=== PATIENT | female | born 1985 | race Caucasian/White ===

== ENCOUNTER → 2016-12-15 | Emergency (ER) | payer OTHER ==
[2016-12-15 17:01] VITALS: TEMP 98.1; BMI 28.8
--- NOTE | 2016-12-15 17:32 | PDOC ---
History of Present Illness - General History Source: Patient Exam Limitations: No Limitations - History of Present Illness Initial Comments: 12/15/16 17:49 The patient is a 31 year old female with a PMHx of asthma who presents to the ED with RLQ pain since Thursday. She now complains of suprapubic pain now. She reports that her pain was 10/10, but she currently rates it a 7/10. She also reports bloating and that she has needed to use her albuterol treatment 3x a day. She had an US a month ago that showed left sided kidney stones, but they were too small and she was told they would pass on their own. She has been taking disolvatol for her kidney stones, which she bought online. She denies dysuria, hematuria. She recently had an STD screening which came back negative. FHx: cancer <Anabel Moise - Last Filed: 12/15/16 17:48> <Jaskaran Shoemaker - Last Filed: 12/18/16 10:24> - General Chief Complaint: Pain, Acute Stated Complaint: KIDNEY STONES Time Seen by Provider: 12/15/16 17:32 Past History <Anabel Moise - Last Filed: 12/15/16 17:48> - Past Medical History Asthma: Yes Kidney Stones: Yes - Surgical History Cholecystectomy: Yes - Immunization History Immunization Up to Date: Yes - Psycho/Social/Smoking Cessation Hx Anxiety: No Suicidal Ideation: No Smoking History: Never smoked Have you smoked in the past 12 months: No Hx Alcohol Use: No Drug/Substance Use Hx: No Substance Use Type: None <Jaskaran Shoemaker - Last Filed: 12/18/16 10:24> - Past Medical History Allergies/Adverse Reactions: Allergies Allergy/AdvReac Type Severity Reaction Status Date / Time Penicillins Allergy Itching Verified 12/15/16 16:57 Home Medications: Ambulatory Orders Albuterol Sulfate Inhaler - [Ventolin Hfa Inhaler -] 2 inh PO Q4H 12/15/16 Review of Systems - Review of Systems Able to Perform ROS?: Yes Comments:: 12/15/16 17:49 GENERAL/CONSTITUTIONAL: No fever or chills. No weakness. HEAD, EYES, EARS, NOSE AND THROAT: No change in vision. No ear pain or discharge. No sore throat. CARDIOVASCULAR: No chest pain or shortness of breath. RESPIRATORY: No cough, wheezing, or hemoptysis. GASTROINTESTINAL: No nausea, vomiting, diarrhea or constipation. GENITOURINARY: No dysuria, frequency, or change in urination. MUSCULOSKELETAL: No joint or muscle swelling or pain. No neck or back pain. SKIN: No rash NEUROLOGIC: No headache, vertigo, loss of consciousness, or change in strength/ sensation. ENDOCRINE: No increased thirst. No abnormal weight change. HEMATOLOGIC/LYMPHATIC: No anemia, easy bleeding, or history of blood clots. ALLERGIC/IMMUNOLOGIC: No hives or skin allergy. <Cherie Moiseoblionel Valencia - Last Filed: 12/15/16 17:48> *Physical Exam - Vital Signs Last Vital Signs Temp Pulse Resp BP Pulse Ox 98.1 F 84 16 155/97 100 12/15/16 16:58 12/15/16 16:58 12/15/16 16:58 12/15/16 16:58 12/15/16 16:58 - Physical Exam Comments: 12/15/16 17:49 GENERAL: Awake, alert, and fully oriented, in no acute distress HEAD: No signs of trauma EYES: PERRLA, EOMI, sclera anicteric, conjunctiva clear ENT: Auricles normal inspection, hearing grossly normal, nares patent, oropharynx clear without exudates. Moist mucosa NECK: Normal ROM, supple, no lymphadenopathy, JVD, or masses LUNGS: Breath sounds equal, clear to auscultation bilaterally. No wheezes, and no crackles HEART: Regular rate and rhythm, normal S1 and S2, no murmurs, rubs or gallops ABDOMEN: Tenderness to palpation in suprapubic area. Soft, normoactive bowel sounds. No guarding, no rebound. No masses EXTREMITIES: Normal range of motion, no edema. No clubbing or cyanosis. No cords, erythema, or tenderness NEUROLOGICAL: Cranial nerves II through XII grossly intact. Normal speech, normal gait SKIN: Warm, Dry, normal turgor, no rashes or lesions noted. <Cherie Moiseoblionel Valencia - Last Filed: 12/15/16 17:48> - Vital Signs Last Vital Signs Temp Pulse Resp BP Pulse Ox 98.1 F 84 16 155/97 100 12/15/16 16:58 12/15/16 16:58 12/15/16 16:58 12/15/16 16:58 12/15/16 16:58 <Jaskaran Shoemaker - Last Filed: 12/18/16 10:24> ED Treatment Course - LABORATORY CBC & Chemistry Diagram: 12/15/16 18:00 12/15/16 18:00 <Jaskaran Shoemaker - Last Filed: 12/18/16 10:24> *DC/Admit/Observation/Transfer - Attestations Scribe Attestion: 12/15/16 17:49 Documentation prepared by Anabel Moise, acting as medical laboratory technologist for Jaskaran Shoemaker DO. <Anabel Moise - Last Filed: 12/15/16 17:48> - Attestations Physician Attestion: 12/15/16 17:32 I, Dr. Jaskaran Shoemaker, attest that this document has been prepared under my direction and personally reviewed by me in its entirety. I further attest, that it accurately reflects all work, treatment, procedures and medical decision -making performed by me. <Jaskaran Shoemaker - Last Filed: 12/18/16 10:24> Diagnosis at time of Disposition: Abdominal pain Qualifiers: Abdominal location: right lower quadrant Qualified Code(s): R10.31 - Right lower quadrant pain - Discharge Dispostion Disposition: HOME - Referrals Referrals: STAFF,NOT ON [Primary Care Provider] - - Patient Instructions Printed Discharge Instructions: DI for Abdominal Pain-Adult Additional Instructions: We have not found the cause for your abdominal pain today. All of the tests that we did in the ED were normal. You should return to the ED immediately for severe pain, pain with fever, new or worsening symptoms. Follow up with your doctor within one week.
[2016-12-15 18:02] LABS: URINE APPEARANCE CLEAR; URINE BILIRUBIN NEGATIVE (NEGATIVE); URINE BLOOD NEGATIVE (NEGATIVE); URINE COLOR STRAW; URINE GLUCOSE (UA) NEGATIVE (NEGATIVE); URINE KETONE NEGATIVE (NEGATIVE); URINE LEUK ESTERASE NEGATIVE (NEGATIVE); URINE NITRITE NEGATIVE (NEGATIVE); URINE PROTEIN NEGATIVE (NEGATIVE); URINE UROBILINOGEN NEGATIVE mg/dL (0.2-1.0)
[2016-12-15 18:38] LABS: BASOPHIL 0.7 % (0-2.0); EOSINOPHIL 6.3 % (0-4.5); INR 1.05 (0.82-1.09); MCH 28.4 pg (25.7-33.7); MCHC 33.5 g/dl (32.0-36.0); MEAN PLT VOLUME 9.5 fl (7.5-11.1); NEUTROPHILS 52.2 % (42.8-82.8); PLATELET COUNT 253 K/MM3 (134-434); PROTHROMBIN TIME (PATIENT) 11.6 SEC (9.98-11.88); RDW 13.5 % (11.6-15.6); WHITE BLOOD COUNT 7.2 K/mm3 (4.0-10.0)
[2016-12-15 19:05] LABS: ALBUMIN 3.6 g/dl (3.4-5.0); ALK PHOS 63 U/L (45-117); ANION GAP 10 (8-16); BILIRUBIN,TOTAL 0.2 mg/dL (0.2-1.0); CALCIUM 8.9 mg/dL (8.5-10.1); CO2 23 mmol/L (21-32); CREATININE 0.6 mg/dL (0.55-1.02); GLUCOSE,RANDOM 91 mg/dL (74-106); SGPT/ALT 34 U/L (12-78); TOT PROT 7.8 g/dl (6.4-8.2)
[2016-12-15 19:10] LABS: SGOT/AST 28 U/L (15-37)
--- NOTE | 2016-12-15 22:46 | PDOC ---
*Physical Exam - Vital Signs Last Vital Signs Temp Pulse Resp BP Pulse Ox 98.1 F 84 16 155/97 100 12/15/16 16:58 12/15/16 16:58 12/15/16 16:58 12/15/16 16:58 12/15/16 16:58 ED Treatment Course - LABORATORY CBC & Chemistry Diagram: 12/15/16 18:00 12/15/16 18:00 - ADDITIONAL ORDERS Additional order review: Laboratory Results 12/15/16 12/15/16 12/15/16 18:00 18:00 17:52 INR 1.05 Sodium 137 Potassium 4.1 Chloride 104 Carbon Dioxide 23 Anion Gap 10 BUN 15 Creatinine 0.6 Creat Clearance w eGFR > 60 Random Glucose 91 Calcium 8.9 Total Bilirubin 0.2 D AST 28 D ALT 34 Alkaline Phosphatase 63 Total Protein 7.8 Albumin 3.6 Lipase 182 Serum , Qual Urine Color Urine Appearance Urine pH Ur Specific [place] Urine Protein Urine Glucose (UA) Urine Ketones Urine Blood Urine Nitrite Urine Bilirubin Urine Urobilinogen Ur Leukocyte Esterase Urine HCG, Qual Negative 12/15/16 17:51 INR Sodium Potassium Chloride Carbon Dioxide Anion Gap BUN Creatinine Creat Clearance w eGFR Random Glucose Calcium Total Bilirubin AST ALT Alkaline Phosphatase Total Protein Albumin Lipase Serum , Qual Cancelled Urine Color Straw Urine Appearance Clear Urine pH 6.0 Ur Specific [place] 1.020 Urine Protein Negative Urine Glucose (UA) Negative Urine Ketones Negative Urine Blood Negative Urine Nitrite Negative Urine Bilirubin Negative Urine Urobilinogen Negative Ur Leukocyte Esterase Negative Urine HCG, Qual 12/15/16 18:00 RBC 4.54 MCV 85.0 MCHC 33.5 RDW 13.5 MPV 9.5 Neutrophils % 52.2 Lymphocytes % 33.0 D Monocytes % 7.8 Eosinophils % 6.3 H D Basophils % 0.7 - RADIOLOGY Radiology Studies Ordered: Category Date Time Status TRANSVAGINAL ULTRASOUND US [US] Stat Ultrasound 12/15/16 20:32 Completed Medical Decision Making - Medical Decision Making 12/15/16 22:45 Pt signed out to me as pending CT and pelvic US if CT was negative. CT and pelvic US are normal. Patient feels improved and is asking to go home. Will discharge patient home. Patient understands that we have not found a cause for her pain and will return to the ED for worsening pain. *DC/Admit/Observation/Transfer Diagnosis at time of Disposition: Abdominal pain Qualifiers: Abdominal location: right lower quadrant Qualified Code(s): R10.31 - Right lower quadrant pain - Discharge Dispostion Disposition: HOME Condition at time of disposition: Good Admit: No - Referrals Referrals: STAFF,NOT ON [Primary Care Provider] - - Patient Instructions Printed Discharge Instructions: DI for Abdominal Pain-Adult Additional Instructions: We have not found the cause for your abdominal pain today. All of the tests that we did in the ED were normal. You should return to the ED immediately for severe pain, pain with fever, new or worsening symptoms. Follow up with your doctor within one week. - Post Discharge Activity
[2016-12-15 23:13] VITALS: BP 154/84; PULSE 83
== END | disposition home or self-care (01) ==
LOC: JER 16:50
DX: R10.31 Right lower quadrant pain (principal)
CPT/HCPCS: 36415; 74176-TC; 76830-TC; 80053; 81003; 83690; 84703; 85025; 85610; 87086; 99282-25

== ENCOUNTER 2019-03-09 17:18 | Emergency (ER) | payer OTHER ==
--- NOTE | 2019-03-09 17:27 | PDOC ---
History of Present Illness <Jayden Burdick - Last Filed: 03/09/19 19:12> <Zohra Howard - Last Filed: 03/10/19 13:47> - General Chief Complaint: Respiratory Stated Complaint: RESPIRATORY COMPLAINTS ABDOMINAL PAIN Time Seen by Provider: 03/09/19 17:26 Past History <Jayden Burdick - Last Filed: 03/09/19 19:12> - Past Medical History Asthma: Yes Kidney Stones: Yes - Surgical History Cholecystectomy: Yes - Immunization History Immunization Up to Date: Yes - Psycho Social/Smoking Cessation Hx Smoking History: Never smoked Have you smoked in the past 12 months: No Hx Alcohol Use: No Drug/Substance Use Hx: No Substance Use Type: None <Zohra Howard - Last Filed: 03/10/19 13:47> - Past Medical History Allergies/Adverse Reactions: Allergies Allergy/AdvReac Type Severity Reaction Status Date / Time Penicillins Allergy Itching Verified 03/09/19 17:21 Home Medications: Ambulatory Orders Albuterol Sulfate Inhaler - [Ventolin Hfa Inhaler -] 2 inh PO Q4H 12/15/16 Fluticasone/Salmeterol [Advair Hfa 45-21 Mcg Inhaler] 1 inh PO BID #1 inhaler Montelukast Na [Singulair -] 10 mg PO HS #14 tablet 03/09/19 *Physical Exam - Vital Signs Last Vital Signs Temp Pulse Resp BP Pulse Ox 98.5 F 78 18 143/73 96 03/09/19 17:21 03/09/19 17:21 03/09/19 17:21 03/09/19 17:21 03/09/19 17:21 <Jayden Burdick - Last Filed: 03/09/19 19:12> ED Treatment Course - ADDITIONAL ORDERS Additional order review: Laboratory Results 03/09/19 03/09/19 18:20 18:20 Urine Color Yellow Urine Appearance Clear Urine pH 7.0 Urine Protein Negative Urine Glucose (UA) Negative Urine Ketones Trace Urine Blood Negative Urine Nitrite Negative Urine Bilirubin Negative Urine Urobilinogen 0.2 Ur Leukocyte Esterase Negative Urine HCG, Qual Negative - Medications Given in the ED: ED Medications Discontinued Medications Generic Name Dose Route Start Last Admin Trade Name Freq PRN Reason Stop Dose Admin Albuterol Sulfate 1 amp 03/09/19 18:09 03/09/19 18:15 Ventolin 0.083% Nebulizer Soln - NEB 03/09/19 18:10 1 amp ONCE ONE Administration <Jayden Burdick - Last Filed: 03/09/19 19:12> Medical Decision Making - Medical Decision Making HPI: 34yo F with PMH of asthma presenting with "cold symptoms" x 4 weeks. Patient states she has had fever, congestion, and cough productive of green sputum for about one month. She feels her symptoms have improved but is now endorsing shortness of breath and night sweats. Patient has used her albuterol inhaler "140 times in the past three days" because "it's the only way I can breathe." Patient has had poor po intake and has had diarrhea, about three episodes today of brown loose stool without blood. Endorses nausea, but no vomiting. Has taken a fiber supplement called napolina for the past couple days. Reports urinary frequency, but no dysuria or hematuria. LMP was 02/17/19. ROS: Constitutional: +fever, +chills HEENT: no throat pain, no dysphagia Cardiovascular: no chest pain, no palpitations Respiratory: +cough, +shortness of breath Gastrointestinal: +nausea, +diarrhea Genitourinary: no dysuria, +urinary frequency Musculoskeletal: no myalgia, no arthralgia Skin: no rash, no itching Neurologic: no headache, no weakness PE: General: Awake, alert, and fully oriented, in no acute distress Head: No signs of trauma Eyes: EOMI, sclera anicteric ENT: Moist mucus membranes Neck: Normal ROM, supple Lungs: Lungs clear, Normal breath sounds Cardio: Regular rhythm, S1 and S2 present Abdomen: Tender to palpation in lower abdomen. Soft, nondistended. No guarding, no rebound, no masses. No CVA tenderness. Extremities: Normal range of motion, Distal pulses present SKIN: Warm, Dry, normal turgor Neurologic: Cranial nerves II through XII grossly intact. Normal speech Pelvic: External genitalia without erythema, exudate or discharge. Vaginal vault is with physiologic discharge. Cervix is of normal color without lesion. The os is closed. There is no bleeding noted. Uterus is noted to be of appropriate size and nontender. No cervical motion tenderness is seen. No masses are palpated. The adnexa are without masses or tenderness. ED Course/MDM: DDX including but not limited to viral illness, pna, UTI, PE, medication misuse/ overuse UA Urine Albuterol neb 03/09/19 17:26 Patient feeling better after receiving albuterol 03/09/19 18:30 Laboratory Tests 03/09/19 03/09/19 18:20 18:20 Urine Color Yellow Urine Appearance Clear Urine pH 7.0 Urine Protein Negative Urine Glucose (UA) Negative Urine Ketones Trace Urine Blood Negative Urine Nitrite Negative Urine Bilirubin Negative Urine Urobilinogen 0.2 Ur Leukocyte Esterase Negative Urine HCG, Qual Negative Negative test UA negative for infection 03/09/19 18:37 Peak flow is 490 (ideal is 501) for her gender and height 03/09/19 18:41 Benign pelvic exam as documented above 03/09/19 18:48 Prescriptions for Advair and Singulair sent to pharmacy Advised rest and hydration Referral for pulmonology given Instructed patient to avoid overuse of albuterol Patient stable for discharge home Amenable to follow with primary care physician Discharged with return precautions <Zohra Howard - Last Filed: 03/10/19 13:47> Discharge - Discharge Information Problems reviewed: Yes - Admission No <Jayden Burdick - Last Filed: 03/09/19 19:12> - Discharge Information Problems reviewed: Yes <Zohra Howard - Last Filed: 03/10/19 13:47> - Discharge Information Clinical Impression/Diagnosis: Shortness of breath Asthma Qualifiers: Asthma severity: moderate Asthma persistence: persistent Asthma complication type: uncomplicated Qualified Code(s): J45.40 - Moderate persistent asthma, uncomplicated Condition: Stable Disposition: HOME - Additional Discharge Information Prescriptions: Fluticasone/Salmeterol [Advair Hfa 45-21 Mcg Inhaler] 1 inh PO BID #1 inhaler Montelukast Na [Singulair -] 10 mg PO HS #14 tablet - Follow up/Referral Referrals: Silvia Velazquez MD [Primary Care Provider] - David Walker MD [Staff Physician] - - Patient Discharge Instructions Patient Printed Discharge Instructions: DI for Asthma -- Adult, DI for Viral Upper Respiratory Infection -- Adult Additional Instructions: You were seen in the emergency department for shortness of breath, abdominal pain, and cough. You received a breathing treatment which improved your symptoms. Urinalysis was negative for infection. Prescriptions sent to your pharmacy. Take as instructed. We have referred you to a registry nurse for further evaluation of your symptoms. Call tomorrow morning and make an appointment. Your workup is not complete until you do so. Continue taking home medications as prescribed. Do not take more than two puffs of albuterol every four hours. Seek immediate medical attention if you experience new or worsening symptoms. If you think you are having an emergency, call for emergency medical services or present to the emergency department right away. - Post Discharge Activity
[2019-03-09 17:37] VITALS: BP 143/73; PULSE 78; TEMP 98.5; BMI 28.0
[2019-03-09] MEDS ORDERED: ALBUTEROL SO4 0.083% IH SOL 2.5 MG/3 ML VIAL.NEB. NEB ONE ×2 (18:09→18:10)
--- NOTE | 2019-03-09 18:39 | PDOC ---
Attending Attestation - Resident Resident Name: Zohra Howard - ED Attending Attestation I have performed the following: I have examined & evaluated the patient, The case was reviewed & discussed with the resident, I agree w/resident's findings & plan, Exceptions are as noted - HPI HPI: 03/09/19 18:42 34-year-old female with exacerbation of asthma symptoms for about 1 month, worse the past few days, with productive cough and shortness of breath. No chest pain. Using albuterol inhaler much more frequently and recommended. Subsequent generalized abdominal pain and nausea. No [employer] & ONLINE symptoms - Physicial Exam PE: 03/09/19 18:44 Alert and oriented, well-developed well-nourished, no acute distress. Somewhat abrupt in her answers and occasionally hostile Afebrile, vital signs normal including respiratory rate of 18 and unlabored and oxygen saturation of 99% on room air HEENT clear Neck supple without bruit mass or nodes Chest clear. Full breath sounds bilaterally. No wheezes rales or rhonchi. CV regular without murmur rub or gallop Abdomen nondistended. Bowel sounds normal. Mild diffuse tenderness in the epigastrium, mid abdomen, and both lower quadrants without guarding or rebound. There seems to be an exaggerated response to even light pressure. Skin clear, no rash, adequate turgor and wet mucous membranes Extremities no CCE Neurological C2 to 12 intact. Strength full and symmetric. No focal sensorimotor deficits. Gait stable and unimpaired. Pelvic exam performed by the resident showed no definite abnormalities. Cultures were obtained. - Medical Decision Making 03/09/19 19:46 Assessment: Probable exacerbation of asthma, manifested by cough, shortness of breath, and anxiety. Lungs are now clear, respiratory rate normal and oxygen saturation 99, peak flow 490. Abdomen with mild diffuse tenderness but no guarding or rebound. Pelvic exam negative. Only medication is albuterol pump, which is being used to frequently, and probably resulting in abdominal distress. No sign of acute pneumonia or serious infection. Plan: Albuterol for rescue inhaler as needed but only 1 or 2 puffs every 4-6 hours. Begin Advair and Singulair. Rest and fluids. Pulmonology referral. Fully ambulatory in no pain or other distress respiratory or otherwise upon discharge with family to follow-up as directed, or return to ER if worse.
== END 2019-03-09 19:12 | disposition home or self-care (01) ==
LOC: FER 17:18
PROC: 3E0F7GC Introduction of Other Therapeutic Substance into Respiratory Tract, Via Natural or Artificial Opening (ICD-10-PCS; principal; 2019-03-09)
DX: J45.40 Moderate persistent asthma, uncomplicated (principal); Z88.0 Allergy status to penicillin; J45.909 Unspecified asthma, uncomplicated
CPT/HCPCS: 81003; 84703; 94640; 99282-25